=== PATIENT | female | born 1980 | race Asian ===

== ENCOUNTER → 2024-12-21 15:38 | Outpatient (REF) | payer BC, SELFPAY | LOC: HWRAD 15:38 | PROVIDERS: ATTENDING PHYSICIAN Student in an Organized Health Care Education/Training Program | DX: M54.16 Radiculopathy, lumbar region (principal) | CPT/HCPCS: 72110 ==

== ENCOUNTER 2025-04-26 19:00 | Outpatient (RCR) | payer BC, SELFPAY | END 2025-04-26 23:59 | disposition home or self-care (01) | LOC: RPT 19:00 | PROVIDERS: ATTENDING PHYSICIAN Student in an Organized Health Care Education/Training Program; FAMILY PHYSICIAN Family Medicine | DX: M51.16 Intervertebral disc disorders with radiculopathy, lumbar region (principal); M54.16 Radiculopathy, lumbar region (principal); Z73.6 Limitation of activities due to disability; M62.81 Muscle weakness (generalized); R26.2 Difficulty in walking, not elsewhere classified; R26.89 Other abnormalities of gait and mobility | CPT/HCPCS: 97110; 97140; 97162 ==

== ENCOUNTER 2025-05-26 17:16 | Outpatient (RCR) | payer BC, SELFPAY | END 2025-05-26 23:59 | disposition home or self-care (01) | LOC: RPT 17:16 | PROVIDERS: ATTENDING PHYSICIAN Student in an Organized Health Care Education/Training Program; FAMILY PHYSICIAN Family Medicine | DX: M54.16 Radiculopathy, lumbar region (principal); Z73.6 Limitation of activities due to disability; M51.16 Intervertebral disc disorders with radiculopathy, lumbar region; M62.81 Muscle weakness (generalized); R26.2 Difficulty in walking, not elsewhere classified; R26.89 Other abnormalities of gait and mobility | CPT/HCPCS: 97110; 97140 ==

== ENCOUNTER 2025-06-30 13:25 | Outpatient (RCR) | payer BC, SELFPAY | END 2025-06-30 23:59 | disposition home or self-care (01) | LOC: RPT 13:25 | PROVIDERS: ATTENDING PHYSICIAN Student in an Organized Health Care Education/Training Program; FAMILY PHYSICIAN Family Medicine | DX: M51.16 Intervertebral disc disorders with radiculopathy, lumbar region (principal); Z73.6 Limitation of activities due to disability; M62.81 Muscle weakness (generalized); R26.2 Difficulty in walking, not elsewhere classified; R26.89 Other abnormalities of gait and mobility; M54.16 Radiculopathy, lumbar region | CPT/HCPCS: 97110; 97140 ==